=== PATIENT | female | born 1995 | race Caucasian/White ===

== ENCOUNTER 2016-05-09 13:10 | Emergency (ER) | payer OTHER ==
[~2016-05-09] VITALS: Ht 160 cm; Wt 102.2 kg
[2016-05-09 13:12] VITALS: BP 150/68; PULSE 146; RESP 24; TEMP 98.7; O2SAT 96
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
[2016-05-09 14:40] VITALS: PULSE 123; RESP 18; O2SAT 96
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
[2016-05-09] MEDS ORDERED: ROBA750T PO (16:04)
[2016-05-09] MEDS ORDERED: NAPR500T PO (16:04)
[2016-05-09 16:25] VITALS: PULSE 116; RESP 16
== END 2016-05-09 16:29 | disposition home or self-care (01) ==
LOC: NEPB 13:10
DX: S16.1XXA Strain of muscle, fascia and tendon at neck level, initial encounter (principal); R00.0 Tachycardia, unspecified; V43.62XA Car passenger injured in collision with other type car in traffic accident, initial encounter; Y93.9 Activity, unspecified; Y92.9 Unspecified place or not applicable; Y99.9 Unspecified external cause status
CPT/HCPCS: 72125; 84703; 99284; L0150